=== PATIENT | female | born 1950 | race Caucasian/White ===

== ENCOUNTER → 2017-05-06 | Outpatient (CLI) | payer OTHER | LOC: BMCIMAGING 11:11 | PROVIDERS: ATTEND Allergy & Immunology Allergy ==

== ENCOUNTER → 2017-05-15 | Outpatient (CLI) | payer OTHER | LOC: CIMAGING 11:11 | PROVIDERS: ATTEND Allergy & Immunology Allergy | DX: J18.1 Lobar pneumonia, unspecified organism (principal) | CPT/HCPCS: 71020-PO ==

== ENCOUNTER → 2017-05-24 | Outpatient (CLI) | payer OTHER | LOC: BMCIMAGING 15:44 | PROVIDERS: ATTEND Allergy & Immunology Allergy | DX: R05 Cough (principal); J45.909 Unspecified asthma, uncomplicated ==

== ENCOUNTER 2017-06-16 12:07 | Observation (INO) | payer OTHER ==
--- NOTE | 2017-06-16 12:21 | EDPHY ---
H & P Time Seen by Provider: 06/16/17 12:18 HPI/ROS: CHIEF COMPLAINT: Shortness of breath HISTORY OF PRESENT ILLNESS: 66-year-old female with a history of asthma presents with shortness of breath. Onset of shortness of breath 5 days ago, gradually increasing since then. She has been using her home nebulizer with some relief. Unable to sleep well last night because of shortness of breath. Associated with an occasional cough. No fever. She was seen at [facility] just prior to arrival and received Solu-Medrol 125 mg IV and a DuoNeb. After treatment, oxygen saturation 88% on room air. Chest x-ray revealed mediastinal adenopathy. She was sent here for further evaluation. History of pneumonia in April 2017. REVIEW OF SYSTEMS: Constitutional: No fever, no chills Eyes: No visual changes ENT: No sore throat Cardiac: No chest pain Gastrointestinal: No nausea, no vomiting, no abdominal pain Genitourinary: no dysuria Musculoskeletal: No leg pain or swelling Skin: No rash Neurological: No headache, no weakness Psychiatric: No depression Past Medical/Surgical History: Asthma Social History: Lives in own home No recent alcohol Smoking Status: Never smoked Physical Exam: General Appearance: Alert, pleasant, on oxygen 2 L by nasal cannula, oxygen saturation 94% Eyes: Pupils equal and round, no conjunctival pallor or injection ENT, Mouth: Mucous membranes moist Neck: Normal inspection Respiratory: normal respiratory rate, decreased breath sounds throughout, occasional wheezing Cardiovascular: Regular rate and rhythm Gastrointestinal: Abdomen is soft and nontender Neurological: A&O, nonfocal exam Skin: Warm and dry, no rash Extremities: Nontender, no pedal edema Psychiatric: Mood and affect normal Constitutional: Initial Vital Signs Temperature (C) 36.6 C 06/16/17 12:13 Heart Rate 106 H 06/16/17 12:13 Respiratory Rate 24 H 06/16/17 12:13 Blood Pressure 176/81 H 06/16/17 12:13 O2 Sat (%) 84 L 06/16/17 12:13 O2 Delivery Mode Room Air O2 (L/minute) 2 Allergies/Adverse Reactions: aspirin [Aspirin] Allergy (Verified 06/16/17 12:11) Penicillins Allergy (Verified 06/16/17 12:11) Sulfa (Sulfonamide Antibiotics) Allergy (Verified 06/16/17 12:11) Home Medications: Medication Instructions Recorded Albuterol [Proventil Inhaler HFA 2 puffs IH Q4-6PRN PRN 08/19/14 (*)] Budesonide/Formoterol 160/4.5 1 puffs IH HS 08/19/14 [Symbicort 160-4.5 Mcg Inh (*)] Losartan Potassium [Cozaar 50 mg 50 mg PO DAILY 08/19/14 (*)] Vit A/Vit C/Vit E/Zinc/Copper 1 each PO BID 08/19/14 [Preservision Areds Softgel] metFORMIN HCL [Glucophage 500 mg 500 mg PO BIDMEAL 05/04/15 (*)] Fexofenadine HCl [Christiana Allergy] 60 mg PO DAILY 06/16/17 Ipratropium/Albuterol [Duoneb (*)] 3 ml IH QID PRN 06/16/17 Levothyroxine [Synthroid 50 mcg 50 mcg PO DAILY06 06/16/17 (*)] predniSONE [predniSONE] 10 mg PO DAILY PRN 06/16/17 Medical Decision Making - Diagnostics EKG Interpretation: EKG interpreted by me reveals normal sinus rhythm, rate 99, T-wave inversions in leads V1 through V3, PVC. Interpretation: Abnormal EKG ED Course/Re-evaluation: This patient presents with shortness of breath, likely secondary to an asthma exacerbation. However on physical exam, she does not have much wheezing. D- dimer ordered to screen for pulmonary embolism. If this test is positive, she will need a CT pulmonary angiogram of her chest. If negative, will proceed with CT of the chest with IV contrast to further evaluate the possible mediastinal adenopathy seen on chest x-ray. Laboratory tests and CXR performed at [facility] just [employer] reviewed by me. An IV was placed and the hospitalist service was consulted for admission for asthma exacerbation and hypoxia. EKG a reveals sinus rhythm, rate 99, T-wave inversions anteriorly. The clinical scenario not c/w cardiac ischemia, given prolong and persistent sx. Troponin ordered and is normal. CT chest with IV contrast d/w Dr. Quezada-adenopathy present, organizing pneumonia RUL, o/w unremarkable. Differential Diagnosis: Differential diagnosis includes does not limited to asthma exacerbation, pulmonary embolism, congestive heart failure, pneumonia, acute coronary syndrome. - Data Points Medications Given: Discontinued Medications Albuterol/Ipratropium (Duoneb) 3 ml IH EDNOW ONE Stop: 06/16/17 13:22 Last Admin: 06/16/17 13:26 Dose: 3 ml Departure - Departure Disposition: [facility] Acute Clinical Impression: Exacerbation of asthma Qualifiers: Asthma severity: moderate Asthma persistence: persistent Qualified Code(s): J45.41 - Moderate persistent asthma with (acute) exacerbation Condition: Fair
[2017-06-16] MEDS ORDERED: ONDANSETRON DISINTEGRATING 4 MG TAB PO PRN (12:59)
[2017-06-16] MEDS ORDERED: ONDANSETRON 4 MG/2 ML VIAL IVP PRN (12:59)
[2017-06-16] MEDS ORDERED: ALBUTEROL 3 ML DEYVIAL IH PRN (12:59)
[2017-06-16] MEDS ORDERED: ACETAMINOPHEN 325 MG TAB PO PRN (12:59)
--- NOTE | 2017-06-16 13:03 | CPEKG ---
Heart Rate: 99 RR Interval: 606 P-R Interval: 160 QRSD Interval: 72 QT Interval: 336 QTC Interval: 432 P [place]: 58 QRS [place]: 66 T Wave [place]: 73 EKG Severity - ABNORMAL ECG - EKG Impression: SINUS RHYTHM EKG Impression: VENTRICULAR PREMATURE COMPLEX EKG Impression: NONSPECIFIC T ABNORMALITIES, ANTERIOR LEADS Electronically Signed By: Annia Booth 16-Jun-2017 15:02:46
[2017-06-16] MEDS ORDERED: IPRATROPIUM/ALBUTEROL 3 ML DEYVIAL IH ONE (13:21)
[2017-06-16] MEDS ORDERED: IOPAMIDOL (ISOVUE-300) 100 ML BTL ONE (14:49)
--- NOTE | 2017-06-16 16:02 | PDGENHP ---
History and Physical - Chief Complaint Acute shortness of breath - History of Present Illness Primary bag sorter: Dr. Barbara Concepcion HPI: 66-year-old female presenting with acute shortness of breath characterized as difficulty breathing rendering her unable to sleep with associated cough, onset of symptoms approximately 5 days ago and duration intermittent thereafter. The patient reports that after she experienced pneumonia approximately 6 weeks ago, she has continued to experience intermittent shortness of breath, and during that time she has had couple courses of steroids, most notably 10 mg daily discontinuing approximately 7 days ago. Immediately after the steroids were stopped, the patient began experiencing recurrent shortness of breath and she has been attempting to manage the symptoms with her nebulizer treatments at home. 3 days prior to this admission, the patient took 1 dose of prednisone 10 mg, and she reports that the symptoms were somewhat alleviated for approximately 24-48 hours. The symptoms recurred and were particularly severe on the evening prior to this presentation, rendering the patient unable to sleep, prompting her to seek medical attention at [facility] on the morning of this presentation. History Information - Allergies/Home Medication List Allergies/Adverse Reactions: aspirin [Aspirin] Allergy (Verified 06/16/17 12:11) Penicillins Allergy (Verified 06/16/17 12:11) Sulfa (Sulfonamide Antibiotics) Allergy (Verified 06/16/17 12:11) Home Medications: Albuterol [Proventil Inhaler HFA (*)] 2 puffs IH Q4-6PRN PRN 08/19/14 [Last Taken 06/16/17] Budesonide/Formoterol 160/4.5 [Symbicort 160-4.5 Mcg Inh (*)] 1 puffs IH HS 02/23 [Last Taken 06/15/17] Losartan Potassium [Cozaar 50 mg (*)] 50 mg PO DAILY 08/19/14 [Last Taken ] Vit A/Vit C/Vit E/Zinc/Copper [Preservision Areds Softgel] 1 each PO BID [Last Taken 06/15/17] metFORMIN HCL [Glucophage 500 mg (*)] 500 mg PO BIDMEAL 05/04/15 [Last Taken 11/25 18:00] Fexofenadine HCl [Christiana Allergy] 60 mg PO DAILY 06/16/17 [Last Taken 06/15/17] Ipratropium/Albuterol [Duoneb (*)] 3 ml IH QID PRN 06/16/17 [Last Taken 06/15/17 ] Levothyroxine [Synthroid 50 mcg (*)] 50 mcg PO DAILY06 06/16/17 [Last Taken 11/25] predniSONE [predniSONE] 10 mg PO DAILY PRN 06/16/17 [Last Taken 06/13/17] I have personally reviewed and updated: family history, medical history, social history, surgical history - Past Medical History asthma (She has been intubated once in her 30s), diabetes type 2, hypertension Additional medical history: Recent pneumonia approximately 6 weeks ago. Hypothyroidism - Surgical History Additional surgical history: Sinus surgery - Family History Additional family history: Mother with colon cancer, father with myocardial infarction, no family history of lymphoproliferative disorders - Social History Smoking Status: Never smoked Alcohol Use: None Drug Use: None Additional social history: Retired, physically active Review of Systems Review of Systems: ROS: 10pt was reviewed & negative except for what was stated in HPI & below Respiratory: Reports: cough, shortness of breath Physical Exam Physical Exam: Temp Pulse Resp BP Pulse Ox 36.9 C 96 14 140/76 H 91 L 06/16/17 14:02 06/16/17 14:02 06/16/17 14:02 06/16/17 14:02 06/16/17 14:02 O2 (L/minute) 3 Constitutional: no apparent distress, not in pain, obese, uncomfortable Eyes: PERRL, anicteric sclera, EOMI Ears, Nose, Mouth, Throat: moist mucous membranes, hearing normal, ears appear normal, no oral mucosal ulcers Cardiovascular: no murmur, rub, or gallop, tachycardia, No systolic murmur, No irregularly irregular, No JVD, No edema Respiratory: reduced air movement (On expiration bilaterally), No expiratory wheeze, No inspiratory crackles, No bronchial breath sounds, No respiratory distress Gastrointestinal: normoactive bowel sounds, soft, non-tender abdomen, no palpable masses, No distension Skin: warm, normal color, no rashes or abrasions, no fluctuance, no induration, No mottled Neurologic: AAOx3, sensation intact bilaterally, No weakness Psychiatric: interacting appropriately, not anxious, not encephalopathic, thought process linear Lab Data & Imaging Review D-Dimer < 0.27 ug/mLFEU (0.00-0.50) 06/16/17 12:49 Troponin I < 0.012 ng/mL (0.000-0.034) 06/16/17 12:50 Visualized and Interpreted Chest x-ray results: Yes Chest X-Ray results: other (Resolved right middle lobe, left-sided lymphadenopathy, no focal airspace disease) Visualized and Interpreted EKG results: Yes EKG Interpretation: Positive for: other (Normal sinus mechanism with T-wave inversions in lead V2 to V3) Assessment & Plan Assessment: 66-year-old female presents with acute asthma exacerbation Plan: 1. Asthma exacerbation. Acute, new problem this provider, further workup indicated. Evidenced by reduced expiratory air movement on physical exam, reports from [facility] that the patient was experiencing wheezing, symptomatically improving with Solu-Medrol and duo nebs -continue the patient on scheduled DuoNeb treatments and adjust her to prednisone 60 mg daily, to complete a 5 day burst -get respiratory viral panel to determine whether the patient has a viral precipitant -D-dimer is negative, no CT angiogram indicated 2. Mediastinal Lymphadenopathy. Acute, new problem this provider, further workup indicated. Present on chest x-ray in the left mediastinum, review of outside records including 05/24/2017 chest x-ray makes no mention of left-sided lymphadenopathy, although the left side of the mediastinum on that image also appears somewhat full -I suspect that this is most likely resolving adenopathy after her recent bacterial pneumonia -CT of chest with IV contrast has been ordered, formal read is currently pending 3. Diabetes mellitus type 2. Reviewed outside records including discharge summary by Brooke Stevens 08/20/2014 characterizing patient's most recent hospitalization for influenza B, new diagnosis diabetes mellitus, hemoglobin A1c 7.6% that time. -continue metformin, renal function normal 4. Hypertension. Chronic, continue home medication Diet. Diabetic Prophylaxis. High risk patient, Lovenox for Code. Full Disposition. Anticipated discharge is 06/17/2017, pending stabilization of the condition outlined above. I discussed the patient's presentation with Jacy Lucas, hospitalist provider, she has signed out the patient to me for evaluation.
[2017-06-16] MEDS: predniSONE 20 MG TAB PO SCH (16:15)
[2017-06-16] MEDS: IPRATROPIUM/ALBUTEROL 3 ML DEYVIAL IH SCH ×2 (17:14→21:15)
[2017-06-16] MEDS: metFORMIN HCL 500 MG TAB PO SCH (18:43)
[2017-06-16] MEDS: PRESERVISION AREDS2 FORMULA EYE VIT 1 EACH PO SCH (20:44)
[2017-06-16] MEDS ORDERED: BUDESONIDE/FORMOTEROL 160/4.5 60 PUFFS/MDI IH SCH (21:00)
[2017-06-17] MEDS: IPRATROPIUM/ALBUTEROL 3 ML DEYVIAL IH SCH ×2 (05:26→11:07)
[2017-06-17] MEDS ORDERED: LEVOTHYROXINE 50 MCG TAB PO SCH (06:00)
[2017-06-17 06:02] LABS: ALANINE AMINOTRANSFERASE 34 IU/L (9-52); ALBUMIN 3.5 g/dL (3.5-5.0); ALKALINE PHOSPHATASE 70 IU/L (38-126); ANION GAP 13 mEq/L (8-16); ASPARTATE AMINOTRANSFERASE 15 IU/L (14-46); BILIRUBIN,TOTAL 0.6 mg/dL (0.1-1.4); CALCIUM 9.2 mg/dL (8.5-10.4); CARBON DIOXIDE 23 mEq/l (22-31); CHLORIDE 103 mEq/L (97-110); CREATININE 0.5 mg/dL (0.6-1.0); GLOMERULAR FILTRATION RATE > 60; GLUCOSE 292 mg/dL (70-100); POTASSIUM 4.5 mEq/L (3.5-5.2); SODIUM 139 mEq/L (134-144); TOTAL PROTEIN 5.9 g/dL (6.3-8.2)
[2017-06-17 07:37] VITALS: BP 125/64
[2017-06-17] MEDS: PRESERVISION AREDS2 FORMULA EYE VIT 1 EACH PO SCH (08:25)
[2017-06-17] MEDS: predniSONE 20 MG TAB PO SCH (08:26)
[2017-06-17] MEDS: metFORMIN HCL 500 MG TAB PO SCH (08:27)
[2017-06-17] MEDS ORDERED: CETIRIZINE 10 MG TAB PO SCH (09:00)
[2017-06-17] MEDS ORDERED: ENOXAPARIN 40 MG/0.4 ML SYR SC SCH (09:00)
[2017-06-17] MEDS ORDERED: LOSARTAN POTASSIUM 50 MG TAB PO SCH (09:00)
--- NOTE | 2017-06-17 09:30 | ASMTCMCOM ---
CM Note CM Note Notes: 06/17/2017 Case Management Note Reviewed chart. No case management d/c needs identified at this time d/t pt age, marital status and activity levels prior to admission. Awaiting PT evals for guidance on d/c plan. Case Management d/c poc: anticipating independent when medically stable with follow up as directed. Case Management will follow. Date Signed: 06/17/2017 09:30 AM Electronically Signed By:Denise Jimenez RN
[2017-06-17 11:32] VITALS: PULSE 93; RESP 18; TEMP 97.6; O2SAT 90
--- NOTE | 2017-06-17 13:59 | ASDISCHSUM ---
Discharge Information Plan Status:Home with No Needs Medically Cleared to Leave: Discharge Date:06/17/2017 01:32 PM CM D/C Disposition:Home, Routine, Self-Care ADT D/C Disposition:Home, Routine, Self-Care Projected Discharge Date:06/17/2017 01:32 PM Transportation at D/C: Discharge Delay Reason: Follow-Up Date:06/17/2017 01:32 PM Discharge Slot: Final Diagnosis: Placement Information Patient Contact Information Contact Name:CESAR Relationship: Address:[address] [place]:[facility] Phone: [facility]/Zip Code:[place] [address] Email: Financial Information Financial Class:[employer] Primary Plan Desc:[employer] OPEN ACC LOCAL Primary Plan Number:[id number] Secondary Plan Desc: [facility] Secondary Plan Number:[id number] Assessment Information [facility] CM Progress Note CM Note CM Note Notes: 06/17/2017 Case Management Note Reviewed chart. No case management d/c needs identified at this time d/t pt age, marital status and activity levels prior to admission. Awaiting PT evals for guidance on d/c plan. Case Management d/c poc: anticipating independent when medically stable with follow up as directed. Case Management will follow. Date Signed: 06/17/2017 09:30 AM Electronically Signed By:Denise Jimenez RN Intervention Information Intervention Type:*Incorrect Registration Date of Service:06/16/2017 06:12 PM Patient Type:Inpatient Staff Member:SNEHAL Lala, Tresa Hours: Discipline: Severity: Comment:
--- NOTE | 2017-06-17 18:48 | PDDCSUM ---
Discharge Summary Discharge Summary: DISCHARGE SUMMARY FOLLOW-UP ITEMS: Reassess outpatient duration of steroids DATE OF ADMISSION: 06/16/2017 DATE OF DISCHARGE: 06/17/2017 DISCHARGE DIAGNOSES: 1. Acute asthma exacerbation 2. Acute mediastinal lymphadenopathy 3. Diabetes mellitus type 2 with hyperglycemia 4. Chronic hypertension CONSULTATIONS: None PROCEDURES / IMAGING: CT of the chest with IV contrast demonstrating some shoddy hilar lymphadenopathy , small area of resolving pneumonia right upper lobe CHIEF COMPLAINT: Acute shortness of breath SUBJECTIVE: Patient is feeling well at time of discharge, her breathing is normal on room air PHYSICAL EXAM ON DISCHARGE: Systolic blood pressure 121-130, heart rate 90, satting well on room air, lungs are clear to auscultation bilaterally with no expiratory wheeze or expiratory bronchial breath sounds, she has a very mildly shortened expiratory phase but she is not trigger any cough with deep expiration LABS ON DISCHARGE: Respiratory viral panel negative, creatinine 0.5, glucose 290 HOSPITAL COURSE BY PROBLEM: The patient presented with acute shortness of breath and hypoxia, notably an SpO2 of 84% on room air with objective tachypnea and respiratory rate of 24, secondary to acute asthma exacerbation in the setting of recently treated pneumonia. The exact precipitant is unclear, although it is certainly possible that she is experiencing a rebound in symptoms after recently stopping prednisone. She was ruled out for viral precipitants with a negative viral panel , and ruled out for pulmonary embolism with negative D-dimer. Chest CT demonstrated some resolving right upper lobe pneumonia, but a procalcitonin level was negative, effectively ruling out bacterial process, and consequently no additional antibiotics were indicated. She received duo nebulizer treatment as well as IV steroids at [facility], and was continued on scheduled nebulizers overnight as well as a prednisone steroid burst of 60 mg. her primary producer assistant has prescribed her prednisone taper, and this certainly sounds reasonable, given patient's recent rebound in symptoms with discontinuation of steroids. Given that she is feeling significantly improved today with no hypoxia on room air, she will discharge home with the prednisone taper, to be followed up in reassessed at [facility]. She also continue utilizing her home breathing treatments. Her diabetic management will continue with metformin, and I have advised the patient to resume her metformin after holding tomorrow's dosage, given her recent CT scan with IV contrast. We discussed the signs and symptoms of possible contrast induced nephropathy, and the patient will seek medical attention if she experiences any of them. DISCHARGE MEDICATIONS: Please see official discharge medication reconciliation sheet in chart , prednisone taper, continue home breathing treatments. DISCHARGE INSTRUCTIONS: Please follow up with [facility] early next week.
== END 2017-06-17 13:32 | disposition home or self-care (01) ==
LOC: INTOOBSV 12:40 → OBSVTOIN 12:40 → F3E 13:49
PROVIDERS: ADMIT Internal Medicine; ATTEND Internal Medicine
DX: J45.901 Unspecified asthma with (acute) exacerbation (principal); R59.0 Localized enlarged lymph nodes; E11.65 Type 2 diabetes mellitus with hyperglycemia; I10 Essential (primary) hypertension
CPT/HCPCS: 71260; 93005; G0378; J1650; Q9967

== ENCOUNTER → 2017-06-16 | Outpatient (CLI) | payer OTHER | LOC: BMCIMAGING 10:34 | PROVIDERS: ATTEND Nurse Practitioner Family | DX: J18.9 Pneumonia, unspecified organism (principal) ==